=== PATIENT | male | born 1995 | race Caucasian/White ===

== ENCOUNTER 2024-02-26 15:46 | Emergency (ER) | payer OTHER ==
--- NOTE | 2024-02-26 16:55 | XR ---
EXAMINATION TYPE: XR knee complete LT DATE OF EXAM: 02/26/2024 4:35 PM CLINICAL INDICATION:Male, 29 years old with history of pain; H COMPARISON: None. TECHNIQUE: XR knee complete LT; examined in Frontal, lateral and oblique projections. FINDINGS: No evidence of any acute osseous pathology, soft tissue swelling, or joint effusion is no billie. Joint spaces are preserved. No significant degeneration changes of the knee. A fabella is presen t. IMPRESSION: 1. No acute osseous pathology. 2. Small joint effusion. Correlate with MRI for further evaluation for soft tissue injury.
[2024-02-26 18:30] VITALS: RESP 16
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
[2024-02-26] MEDS: HYDROcodone/APAP 7.5-325MG 1 EACH TAB PO ONE (18:37)
[2024-02-26 19:13] VITALS: BP 157/100; PULSE 75; TEMP 98.1
== END 2024-02-26 19:13 | disposition home or self-care (01) ==
LOC: EC 15:46
DX: S89.92XA Unspecified injury of left lower leg, initial encounter (principal); V89.2XXA Person injured in unspecified motor-vehicle accident, traffic, initial encounter; Y92.410 Unspecified street and highway as the place of occurrence of the external cause
CPT/HCPCS: 99283

== ENCOUNTER 2024-04-12 05:38 | Day surgery (SDC) | payer OTHER ==
[2024-04-06 16:06] VITALS: BMI 37.6
[~2024-04-12 05:38] MED LIST: LIDOCAINE 1% (10MG/ML) FOR IV START INTRADERMA PRN; Pre Op ABX Message 1 EACH MISC MISCELLANE ONE; droPERidol 5 MG/2 ML VIAL IVP ONE
[2024-04-12] MEDS: IV FLUID CONTINUATION 1,000 ML IV ONE (06:15)
[2024-04-12] MEDS: ONDANSETRON 4 MG/2 ML VIAL IVP ONE (06:53)
[2024-04-12] MEDS: DEXAMETHASONE SOD PHOSPHATE 4 MG/ML 1 ML VIAL IV ONE (06:54)
[2024-04-12] MEDS: LACTATED RINGERS 1,000 ML IV SCH (06:54)
[2024-04-12] MEDS: SCOPOLAMINE 1 MG/72 HR PATCH TRANSDERM ONE (06:55)
[2024-04-12] MEDS: MIDAZOLAM 2 MG/2 ML VIAL IV ONE (07:13)
[2024-04-12] MEDS ORDERED: MIDAZOLAM 2 MG/2 ML VIAL ONE (07:25)
[2024-04-12] MEDS ORDERED: TRANEXAMIC 1,000 MG/100ML-NACL PREMIX BAG ONE (07:25)
[2024-04-12] MEDS ORDERED: SUCCINYLCHOLINE CHLORIDE 200 MG/10 ML VIAL IV ONE (07:25)
[2024-04-12] MEDS ORDERED: GLYCOPYRROLATE 0.2 MG/ML 2 ML VIAL ONE (07:25)
[2024-04-12] MEDS ORDERED: DEXAMETHASONE SOD PHOSPHATE 4 MG/ML 1 ML VIAL ONE (07:25)
[2024-04-12] MEDS ORDERED: ROCURONIUM 10 MG/ML (5 ML VIAL) IV ONE (07:25)
[2024-04-12] MEDS ORDERED: ROPIVACAINE 5 MG/ML 30 ML VIAL ONE (07:25)
[2024-04-12] MEDS ORDERED: LIDOCAINE 1% INJ 10MG/ML (20 ML MDV) ONE (07:25)
[2024-04-12] MEDS ORDERED: fentaNYL (PF) 50 MCG/ML 2 ML AMP ONE (07:25)
[2024-04-12] MEDS ORDERED: NEOSTIGMINE 1 MG/ML 10 ML VIAL ONE (07:25)
[2024-04-12] MEDS ORDERED: PROPOFOL 10 MG/ML 20 ML VIAL IV ONE (07:25)
[2024-04-12] MEDS: SODIUM CHLORIDE 0.9% 100 ML with ceFAZolin 2,000 MG IV ONE (07:30)
[2024-04-12] MEDS: ceFAZolin 1,000 MG in SODIUM CHLORIDE 0.9% 1,000 ML IRRIGATION ONE (08:14)
[2024-04-12] MEDS: LACTATED RINGERS 1,000 ML IV ONE ×2 (09:26→11:50)
[2024-04-12] MEDS: HYDROmorphone 0.5 MG/0.5 ML SYRINGE IVP PRN (09:40)
[2024-04-12 09:48] VITALS: TEMP 96.9
[2024-04-12] MEDS: fentaNYL (PF) 50 MCG/ML 2 ML AMP IVP PRN (09:59)
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
[2024-04-12] MEDS: HYDROcodone/APAP 7.5-325MG 1 EACH TAB PO PRN (11:03)
[2024-04-12] MEDS: hydrALAZINE HCL 20 MG/ML 1 ML VIAL IVP PRN (11:40)
[2024-04-12] MEDS: MEPERIDINE 50 MG/ML SYRINGE IVP STA (11:40)
[2024-04-12 12:01] VITALS: PULSE 87
[2024-04-12 12:24] VITALS: BP 169/90; RESP 16
--- NOTE | 2024-04-12 20:49 | P.ANPRN ---
Procedure Note - Anesthesia - Nerve Block Performed Left Adductor Canal Single Time Out Performed: Yes Date of Procedure: 04/12/24 Procedure Start Time: 07:13 Procedure Stop Time: 07:16 Location of Patient: PreOp Indication: Acute Post-Operative Pain, Requested by Surgeon Sedation Type: Sedate with meaningful contact maintained Preparation: Sterile Prep Position: Supine Needle Types: Pajunk Needle Gauge: 21 Ultrasound used to visualize needle placement: Yes Ultrasound used to observe medication spread: Yes Blood Aspirated: No Pain Paresthesia on Injection Noted: No Resistance on Injection: Normal Image Stored and Saved: Yes Events: Uneventful and Well Tolerated (Ropivacaine 0.5% 20 cc plus dexamethasone 4 mg)
== END 2024-04-12 12:46 | disposition home or self-care (01) ==
LOC: OR 05:38
PROVIDERS: ATTEND Orthopaedic Surgery Sports Medicine
DX: S83.512A Sprain of anterior cruciate ligament of left knee, initial encounter (principal); M67.52 Plica syndrome, left knee; G89.18 Other acute postprocedural pain; K21.9 Gastro-esophageal reflux disease without esophagitis; F10.90 Alcohol use, unspecified, uncomplicated; X58.XXXA Exposure to other specified factors, initial encounter
CPT/HCPCS: 64447

== ENCOUNTER → 2024-10-04 | Outpatient (CLI) | payer OTHER ==
--- NOTE | 2024-10-04 09:02 | US ---
EXAMINATION TYPE: US scrotum with doppler. DATE OF EXAM: 10/04/2024 COMPARISON: NONE CLINICAL INDICATION: Male, 29 years old with history of N49.2 INFLAMMATORY DISORDERS OF SCROTUM; left side swelling x several days TECHNIQUE: Grayscale, color Doppler and spectral Doppler imaging of the scrotum. FINDINGS: EXAM MEASUREMENTS: TESTICLES: Right Testicle: 4.3x2.4x2.9 cm Left Testicle: 4.3x2.8x3.0 cm EPIDIDYMIS HEAD: Right Epididymis: 0.6 cm Left Epididymis: 0.6 cm Doppler performed to assess for testicular vascularity; good bilateral color flow and spectral wavefo kelsea are seen. Symmetric color flow to both testicles. There is no evidence of testicular torsion. Presence of hydroceles: large left hydrocele with debris. No septations. Presence of varicoceles: no IMPRESSION: 1. No evidence of testicular torsion or intratesticular mass. 2. Large left hydrocele with debris. [facility], , 10/04/2024 8:59 AM
== END | disposition home or self-care (01) ==
LOC: RADUSWWP 08:13
PROVIDERS: ATTEND Surgery
DX: N49.2 Inflammatory disorders of scrotum (principal)
CPT/HCPCS: 76870; 93975

== ENCOUNTER → 2025-01-24 | Outpatient (CLI) | payer OTHER ==
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
== END | disposition home or self-care (01) ==
LOC: RADXRMAIN 11:19
DX: R30.9 Painful micturition, unspecified (principal); K59.00 Constipation, unspecified
CPT/HCPCS: 74018